=== PATIENT | female | born 1950 | race Caucasian/White ===

== ENCOUNTER 2018-03-26 11:36 | Emergency (ER) | payer MEDICARE ==
[2018-03-26] MEDS ORDERED: Nitrofurantoin Monohydrate/Macrocrystalline 100 MG Cap PO ONE (12:23)
[2018-03-26] MEDS ORDERED: Metoprolol Tartrate 25 MG Tab PO ONE (12:23)
[2018-03-26] MEDS ORDERED: Ibuprofen 400 MG Tab PO ONE (12:24)
--- NOTE | 2018-03-26 13:04 | EDM.PDOC ---
ED HPI GENERAL MEDICAL PROBLEM - General Chief Complaint: Cardiovascular Problem Stated Complaint: UTI, FREQUENCY,HEADACHE Time Seen by Provider: 03/26/18 12:06 Source of Information: Reports: Patient History Limitations: Reports: No Limitations - History of Present Illness INITIAL COMMENTS - FREE TEXT/NARRATIVE: 68 yo female presented to urgent care with dysuria and was found to have BP 200/ 110 she was then transferred to ER. On arrival she c/o headache. Lst UTI was years ago. Has been on current dose of lisinopril for many years. generally feels well. from [facility] Frontal Pain Score (Numeric/FACES): 4 - Related Data Allergies Allergy/AdvReac Type Severity Reaction Status Date / Time No Known Allergies Allergy Verified 03/26/18 12:04 Home Meds: Home Meds Lisinopril 20 mg PO DAILY 03/26/18 [History] Past Medical History - Past Health History Medical/Surgical History: Denies Medical/Surgical History Cardiovascular History: Reports: Hypertension - Infectious Disease History Infectious Disease History: Reports: Chicken Pox Social & Family History - Tobacco Use Smoking Status *Q: Never Smoker - Caffeine Use Caffeine Use: Reports: Coffee - Recreational Drug Use Recreational Drug Use: No ED ROS GENERAL - Review of Systems Review Of Systems: See Below Constitutional: Denies: Fever, Chills, Fatigue Respiratory: Denies: Shortness of Breath, Wheezing, Cough Cardiovascular: Reports: Blood Pressure Problem. Denies: Chest Pain GI/Abdominal: Reports: Abdominal Pain : Reports: Dysuria, Frequency Neurological: Reports: Headache. Denies: Confusion, Dizziness, Gait Disturbance Psychiatric: Denies: Anxiety ED EXAM, GENERAL - Physical Exam Exam: See Below Exam Limited By: No Limitations General Appearance: Alert, WD/WN, No Apparent Distress Head: Atraumatic, Normocephalic Neck: Normal Inspection, Supple, Non-Tender, Full Range of Motion Respiratory/Chest: No Respiratory Distress, Lungs Clear, Normal Breath Sounds Cardiovascular: Normal Peripheral Pulses, Regular Rate, Rhythm, No Edema, No Gallop, No Murmur, No Rub GI/Abdominal: Soft, Other (suprapubic tenderness) Course - Vital Signs Last Recorded V/S: Last Vital Signs Temp 35.9 C 03/26/18 12:04 Pulse 78 03/26/18 12:28 Resp 10 L 03/26/18 12:04 BP 148/92 H 03/26/18 13:01 Pulse Ox 97 03/26/18 12:04 - Orders/Labs/Meds Meds: Medications Discontinued Medications Generic Name Dose Route Start Last Admin Trade Name Karla PRN Reason Stop Dose Admin Ibuprofen 400 mg 03/26/18 12:24 03/26/18 12:29 Motrin PO 03/26/18 12:25 400 mg ONETIME ONE Administration Metoprolol Tartrate 25 mg 03/26/18 12:23 03/26/18 12:28 Lopressor PO 03/26/18 12:24 25 mg ONETIME ONE Administration Nitrofurantoin Macrocrystals 100 mg 03/26/18 12:23 03/26/18 12:35 Macrobid PO 03/26/18 12:24 100 mg ONETIME ONE Administration Departure - Departure Time of Disposition: 13:01 Disposition: Home, Self-Care 01 Condition: Good Clinical Impression: HTN (hypertension) Qualifiers: Hypertension type: essential hypertension Qualified Code(s): I10 - Essential ( primary) hypertension UTI (urinary tract infection) Qualifiers: Urinary tract infection type: acute cystitis Hematuria presence: without hematuria Qualified Code(s): N30.00 - Acute cystitis without hematuria Instructions: How to Take Your Blood Pressure, [id number] Referrals: PCP,None [Primary Care Provider] - Forms: ED Department Discharge Additional Instructions: Macrobid 100 mg twice daily for 7 days you had your first dose in the emergency room Increase your blood pressure medication to 2 tablets daily - Lisinopril 40 mg increase fluid intake with goal of 1.5 Liters per day
== END 2018-03-26 13:24 | disposition home or self-care (01) ==
LOC: JP.ED 11:36
DX: N30.00 Acute cystitis without hematuria (principal); I10 Essential (primary) hypertension
CPT/HCPCS: 99283; A9270